=== PATIENT | female | born 1965 | race Caucasian/White ===

== ENCOUNTER 2019-07-27 06:14 | Inpatient (IN) | payer OTHER ==
[2019-07-20 11:01] LABS: ABSOLUTE NEUTROPHILS 7.3 thou/uL (1.4-8.2); BASOPHILS 0.6 % (0.0-2.0); EOSINOPHILS 0.8 % (0.0-3.0); HEMATOCRIT 46.6 % (37.0-47.0); HEMOGLOBIN 15.4 gm/dL (12.0-15.0); LYMPHOCYTES 23.8 % (24.0-44.0); MCH 27.1 pg (26.0-34.0); MCV 82.3 fL (80.0-100.0); MONOCYTES 6.9 % (1.0-8.0); PLATELET COUNT 352 thou/uL (150-400); POLYS 67.9 % (36.0-66.0); RBC 5.66 mil/uL (4.20-5.00); RDW 14.1 % (10.5-14.5); WBC 10.7 thou/uL (4.0-11.0)
[2019-07-20 11:15] LABS: ALBUMIN 3.6 g/dL (3.4-5.0); CALCIUM 9.9 mg/dL (8.5-10.1); CREATININE 0.9 mg/dL (0.6-1.0); POTASSIUM 3.9 mmol/L (3.5-5.1); TOTAL BILIRUBIN 0.4 mg/dL (<0.1-1.0); TOTAL PROTEIN 7.6 g/dL (6.4-8.2)
--- NOTE | 2019-07-21 09:37 | EKG ---
[address] [address] ELECTROCARDIOGRAM REPORT Name: KATHLEEN KENDRICK Room #: [facility].#: [id number] Admission: Attend Phys: Ade Peraza MD, Discharge: Date of : 61 Report #: [id number] THIS REPORT FOR: //name// [facility] Test Date: 2019-07-20 Test Time: 11:24:32 Pat Name: KATHLEEN KENDRICK Department: Room: Gender: F Mental Health Counselor: Maritza ROBLEDO : 1965 Requested By: Ade Peraza Order Number: [id number] MD: Can Ulloa Measurements Intervals [place] Rate: 117 P: 78 [place]: 186 QRS: 43 QRSD: 99 T: 123 QT: 312 QTc: 436 Interpretive Statements Sinus tachycardia Right atrial enlargement Poor R wave progression Nonspecific ST segment abnormality Compared to ECG 07/18/2003 22:39:47 No significant change was found Electronically Signed On 07-21-2019 9:37:13 REAL ESTATE LEASING MANAGER by Can Ulloa [email or web address] <ELECTRONICALLY SIGNED> By: Can Ulloa MD, [facility] 07/21/19 0937 [id number] 112 Can Ulloa MD, [facility] /EPI
[~2019-07-27] VITALS: Ht 160 cm; Wt 115.2 kg
[~2019-07-27 06:14] MED LIST: AMBIEN 5 MG TABL5 M1 PO; ASPIR 8181 M1 PO; BENTYL 10 MG CA10 M1 PO; BUPROPION XL300 MG PO; COLACE100 MG PO; DIFLUCAN200 MG PO; DITROPAN XL10 M1 PO; FLEXERIL PO; GRALISE600 MG PO; HALOPERIDO100 MG/11 IM; HALOPERIDOL10 MG PO; HYDROCHLOROTHIA25 M2 PO; HYDROXYZINE HCL50 MG PO; IBUPROFEN 800800 M1 PO; JANUMET 50-1,01 EACH PO; JARDIANCE25 MG PO; LANTUS SOL100 UNIT/1 SQ; LATUDA60 MG PO; LEVOXYL137 MCG PO; LINZESS290 MCG PO; LOSARTAN POTAS100 MG PO; NOVOLOG100 UNIT/1 SUBQ; PIOGLITAZONE15 MG; PROAIR HFA8.5 GM INH; PROBIOTIC1 EAC7 PO; VERAPAMIL SR120 MG PO; VESICARE10 M1 PO; ZANTAC 150MG T150 M1 PO
[2019-07-27 07:16] VITALS: BP 128/81
[2019-07-27 07:22] LABS: HEMATOCRIT 43.4 % (37.0-47.0); HEMOGLOBIN 14.2 gm/dL (12.0-15.0)
[2019-07-27 07:24] LABS: CALCIUM 10.2 mg/dL (8.5-10.1); CREATININE 0.9 mg/dL (0.6-1.0); POTASSIUM 3.4 mmol/L (3.5-5.1)
--- NOTE | 2019-07-27 08:34 | EKG ---
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 : 1965 Requested By: Ade Peraza Order Number: [id number] MD: Miguel Thomas Measurements Intervals [place] Rate: 99 P: 73 [place]: 199 QRS: 11 QRSD: 97 T: 94 QT: 368 QTc: 473 Interpretive Statements Sinus rhythm Borderline prolonged [place] interval Low voltage, extremity and precordial leads Baseline wander in lead(s) II,III,aVF Compared to ECG 07/20/2019 11:24:32 Electronically Signed On 07-27-2019 8:34:27 PEDIATRIC ANESTHESIOLOGIST by Miguel Thomas [email or web address] <ELECTRONICALLY SIGNED> By: Miguel Thomas MD 07/27/19 0834 [id number] Miguel Thomas MD /EPI
[2019-07-27] MEDS ORDERED: HYDROCODONE-ACE15 ML PO (09:05)
[2019-07-27] MEDS ORDERED: ZOFRAN ODT4 MG DISSOLVE (09:05)
--- NOTE | 2019-07-27 14:50 | NUR ---
ASSESSMENT-PT LIVES IN A [place] ALONE BUT HAS A MEDICAID HOMEMAKER & RN FOR 6HRS WEEKLY. PT DRIVES TO [facility]. PT HAS A SISTER AND BROTHER IN [place] AND HER DAD AND ANOTHER BROTHER IN [place]. PT VOICES NO DC NEEDS AT THIS TIME. FOLLOWING TO ASSIST WITH DC PLANNING.
--- NOTE | 2019-07-27 15:03 | NUR ---
54 YO FEMALE ADMITTED FROM PACU. A&OX4. IV INTACT IN LEFT AND RIGHT HANDS. AMBULATES WITH ASSIST X1. INCISIONS X 3 TO ABD WITH DERMABOND NOTED. IS STRICT NPO. IV PAIN AND NAUSEA MEDS GIVEN, IV CONT. FLUIDS STARTED. PT HAS VOIDED. WILL CONT POC.
[2019-07-27 16:37] VITALS: BP 153/99
[2019-07-28 03:20] VITALS: BP 173/104
[2019-07-28 04:20] VITALS: BP 154/91
--- NOTE | 2019-07-28 05:01 | NUR ---
ASSUMED PT CARE AT 1900. PT EXPERIENCING A LOT OF PAIN AND NAUSEA. MEDS GIVEN WITH PARTIAL RELIEF. UP TO THE RESTROOM A FEW TIMES, STEADY ON FEET. LAP SITES DRY AND INTACT. BP ELEVATED OVERNIGHT, MEDS GIVEN ALTHOUGH PT SAYS THAT IS HER NORM. FLUIDS RUNNING, LAST ANTIBIOTIC FINSIHED. PT GOT LITTLE TO NO SLEEP DUE TO PAIN.
[2019-07-28 08:30] VITALS: BP 141/81
[2019-07-28 11:13] VITALS: BP 141/81
--- NOTE | 2019-07-28 15:30 | NUR ---
Assumed pt care at 7am.Pt left for upper gi series early this shift and returned some minutes later.Report called to kwame singh. She rounded on pt and later this afternoon,dc order noted.Dc summary compiled and reviewed with pt . Karyn lock dc'd. At 1530,pt dc home [place] with sister.
--- NOTE | 2019-07-28 17:06 | PATH ---
[facility] [address] [place] [address] PATHOLOGY RPT PROCEDURE Name: KATHLEEN KENDRICK Room #: 447-P [facility] M.R.#: [id number] Admission: 07/27/19 Date of : 61 Discharge: Report #: [id number] Path Case #: [id number] [facility] Accession Number: [id number] . 01 Material submitted: . stomach - STOMACH . 01 Clinical history: . Morbid (severe) obesity due to excess calories . 02 Diagnosis: Stomach, laparoscopic sleeve gastrectomy: - Focal mild reactive gastropathy. - Negative for intestinal metaplasia or atrophy. (IUV:pit; 07/28/2019) QTP 07/28/2019 1258 Local . 02 Electronically signed: . Estefany Bruner MD, Pathologist NPI- [id number] . 01 Gross description: . The specimen is received in formalin, labeled "keily Bar". Received is a partial gastrectomy specimen with a stapled margin of resection measuring 29.4 x 6.5 x 4.8 cm in greatest dimensions. The serosal surface is his pink-coelho and glistening in appearance. Opening the specimen reveals pink-coelho to pink-red mucosa with moderate rugal folds. There are multiple red-brown to brown-black hemorrhagic-appearing areas ranging in size from 0.3 to 0.6 cm in maximum dimensions. The specimen is submitted representatively in cassette A1, to include sections of hemorrhagic areas. (CAA; 07/27/2019) QAC/QAC 07/27/2019 1548 Local . 02 Pathologist provided ICD-10: K31.9 . 02 CPT . 654960 Specimen Comment: A courtesy copy of this report has been sent to [phone] Specimen Comment: Report sent to Performed at: [address], [place] [id number] MD Mykel Corrales MD Phone: [phone] Performed at: [address] [address] PATHOLOGY RPT PROCEDURE Name: KATHLEEN KENDRICK Room #: 447-P [facility] M.R.#: [id number] Admission: 07/27/19 Date of : 61 Discharge: Report #: [id number] Path Case #: [id number] [address] [place], [place] [id number] MD Estefany Bruner MD Phone: [phone]
== END 2019-07-28 15:30 | disposition home or self-care (01) | DRG 621 ==
LOC: OR 06:14 → TBA 06:43 → OR 09:36 → 4S 12:42 → OR 12:43 → 4S 07-28 15:30
PROVIDERS: ADMIT Surgery
PROC: 0DJ08ZZ Inspection of Upper Intestinal Tract, Via Natural or Artificial Opening Endoscopic (ICD-10-PCS; principal; 2019-07-27)
PROC: 0DB64Z3 Excision of Stomach, Percutaneous Endoscopic Approach, Vertical (ICD-10-PCS; principal; 2019-07-27)
DX: E66.01 Morbid (severe) obesity due to excess calories (principal); Z68.42 Body mass index [BMI] 45.0-49.9, adult; Z91.041 Radiographic dye allergy status; Z91.040 Latex allergy status
CPT/HCPCS: 10102; 10195; 50010; 50101; 50222; 50249; 50386; 50555; 50739; 50740; 50962; 51437; 52182; 52265; 53307; 53311; 54022; 54118; 56462; 56525; 56526; 57092; 62110; 62900; 70005